=== PATIENT | female | born 1990 | race Two or more races ===

== ENCOUNTER 2024-04-17 15:39 | Outpatient (REF) | payer OTHER, SELFPAY ==
[2024-04-22 15:37] LABS: Acetylcholine Receptor Binding <0.30 nmol/L
[2024-04-23 02:07] LABS: Acetylcholine Recept. Blocking <15 (<15)
[2024-04-26 16:53] LABS: Acetylcholine Recep Modulating <1
== END 2024-04-17 15:40 | disposition home or self-care (01) ==
LOC: HO.LAB 15:39
PROVIDERS: PCP Student in an Organized Health Care Education/Training Program; Visit Provider Psychiatry & Neurology Neurology
DX: H02.409 Unspecified ptosis of unspecified eyelid (principal)
CPT/HCPCS: 36415; 86041; 86042; 86043